=== PATIENT | female | born 1980 | race Two or more races ===

== ENCOUNTER 2018-03-07 16:57 | Inpatient (IN) | payer OTHER ==
[~2018-03-07] VITALS: Ht 157.5 cm; Wt 6.8 kg
[2018-03-07] MEDS ORDERED: ATABEX EC CAPL1 EACH PO (18:40)
[2018-03-09] MEDS ORDERED: FAMOTIDINE20 MG PO (08:59)
[2018-03-09] MEDS ORDERED: ATABEX EC CAPL1 EACH PO (08:59)
[2018-03-09] MEDS ORDERED: NIFE60TA3 PO (09:00)
== END 2018-03-09 10:31 | DRG 778 ==
LOC: LDR 16:57 → OB/GYN 16:57
PROC: 4A1HXCZ Monitoring of Products of Conception, Cardiac Rate, External Approach (ICD-10-PCS; principal; 2018-03-07)
DX: O20.0 Threatened abortion (principal); Z3A.33 33 weeks gestation of pregnancy

== ENCOUNTER 2018-04-04 00:10 | Outpatient (CLI) | payer OTHER ==
[~2018-04-04 00:10] MED LIST: ATABEX EC CAPL1 EACH PO; FAMOTIDINE20 MG PO; NIFE60TA3 PO
== END 2018-04-04 10:19 | disposition still patient (30) ==
LOC: OBS/DEL 00:10
DX: O47.1 False labor at or after 37 completed weeks of gestation (principal); Z34.83 Encounter for supervision of other normal pregnancy, third trimester

== ENCOUNTER 2018-04-05 05:51 | Inpatient (IN) | payer OTHER ==
[~2018-04-05] VITALS: Ht 157.5 cm; Wt 70.8 kg
[2018-04-07] MEDS ORDERED: METOCLOPRAMIDE10 MG PO (08:26)
== END 2018-04-07 11:56 | disposition home or self-care (01) | DRG 775 ==
LOC: LDR 05:51 → OB/GYN 14:35
PROC: 10E0XZZ Delivery of Products of Conception, External Approach (ICD-10-PCS; principal; 2018-04-05)
PROC: 0KQM0ZZ Repair Perineum Muscle, Open Approach (ICD-10-PCS; 2018-04-05)
PROC: 10907ZC Drainage of Amniotic Fluid, Therapeutic from Products of Conception, Via Natural or Artificial Opening (ICD-10-PCS; 2018-04-05)
PROC: 4A033R1 Measurement of Arterial Saturation, Peripheral, Percutaneous Approach (ICD-10-PCS; 2018-04-05)
PROC: 4A1HXCZ Monitoring of Products of Conception, Cardiac Rate, External Approach (ICD-10-PCS; 2018-04-05)
DX: O70.1 Second degree perineal laceration during delivery (principal); Z37.0 Single live birth; O99.824 Streptococcus B carrier state complicating childbirth; Z3A.37 37 weeks gestation of pregnancy

== ENCOUNTER 2018-04-15 10:29 | Emergency (ER) | payer OTHER ==
[~2018-04-15] VITALS: Ht 157.5 cm; Wt 63.5 kg
[~2018-04-15 10:29] MED LIST changes: +METOCLOPRAMIDE10 MG PO
== END 2018-04-15 16:27 | disposition home or self-care (01) ==
LOC: ER 10:29
DX: R22.0 Localized swelling, mass and lump, head (principal); T78.1XXA Other adverse food reactions, not elsewhere classified, initial encounter; X58.XXXA Exposure to other specified factors, initial encounter

== ENCOUNTER 2025-08-26 03:42 | Emergency (ER) | payer OTHER ==
[~2025-08-26] VITALS: Ht 157.5 cm; Wt 63.5 kg
[2025-08-26] MEDS ORDERED: TOPROL XL50 M1 PO (04:18)
[2025-08-26] MEDS ORDERED: KETOROLAC TROMETHAMINE 60 MG VIAL IM ONE ×2 (06:30→06:45)
[2025-08-26] MEDS ORDERED: IBUPROFEN800 MG PO (09:47)
== END 2025-08-26 09:57 | disposition home or self-care (01) ==
LOC: ER 03:42
DX: S62.632A Displaced fracture of distal phalanx of right middle finger, initial encounter for closed fracture (principal); X58.XXXA Exposure to other specified factors, initial encounter; Y93.89 Activity, other specified; Y92.015 Private garage of single-family (private) house as the place of occurrence of the external cause; Y99.9 Unspecified external cause status; I10 Essential (primary) hypertension; Z91.013 Allergy to seafood; Z91.018 Allergy to other foods